=== PATIENT | female | born 1995 | race Caucasian/White ===

== ENCOUNTER 2018-06-10 02:20 | Outpatient (CLI) | payer OTHER ==
[2018-06-10 03:14] LABS: ADD UMIC YES; UR ASCORBIC ACID 40 mg/dL (NEGATIVE); UR BACTERIA FEW /HPF (NONE SEEN); UR BILIRUBIN (Dip) NEGATIVE (NEGATIVE); UR BLOOD (Dip) NEGATIVE (NEGATIVE); UR CLARITY CLEAR (CLEAR); UR COLOR YELLOW (YELLOW); UR GLUCOSE (Dip) NEGATIVE (NEGATIVE); UR KETONES (Dip) NEGATIVE (NEGATIVE); UR LEUKOCYTE ESTERASE (Dip) TRACE Leu/ul (NEGATIVE); UR MUCUS MODERATE /HPF (NONE SEEN); UR NITRITE (Dip) NEGATIVE (NEGATIVE); UR RBC 2 /HPF (0-5); UR SPECIFIC GRAVITY (Dip) 1.021 (1.003-1.030); UR SQUAMOUS EPITHELIAL CELL FEW /HPF (FEW); UR TOTAL PROTEIN (Dip) NEGATIVE (NEGATIVE); UR UROBILINOGEN (Dip) NEGATIVE (NEGATIVE); UR WBC 4 /HPF (0-5)
[2018-06-10 03:25] LABS: RUPTURE FETAL MEMBRANES NEGATIVE (NEGATIVE)
== END 2018-06-10 05:15 | disposition home or self-care (01) ==
LOC: OBT 02:20 → L-D 02:20 → OBT 05:15
DX: O62.9 Abnormality of forces of labor, unspecified (principal); Z3A.38 38 weeks gestation of pregnancy
CPT/HCPCS: 76818; 81001; 84112

== ENCOUNTER 2018-06-19 16:56 | Inpatient (IN) | payer OTHER ==
[2018-06-19] MEDS ORDERED: LACTATED RINGER'S 1,000 ML IV (19:50)
[2018-06-19] MEDS ORDERED: METHYLERGONOVINE 0.2 MG INJ IM (20:00)
[2018-06-19] MEDS ORDERED: MISOPROSTOL 200 MCG TAB PR (20:00)
[2018-06-19] MEDS ORDERED: BUTORPHANOL 2 MG INJ IV (20:00)
[2018-06-19] MEDS ORDERED: LIDOCAINE 1% (MPF) 30 ML INJ INJ (20:00)
[2018-06-19] MEDS ORDERED: CARBOPROST 250 MCG INJ IM (20:00)
[2018-06-19] MEDS ORDERED: OXYTOCIN 30 UNITS/LR 500 ML IV ×2 (20:00)
[2018-06-19] MEDS: MISOPROSTOL 50 MCG CAPSULE VAG (20:00)
[2018-06-19] MEDS: LACTATED RINGER'S 1,000 ML IV ×2 (20:47→22:59)
[2018-06-19 22:31] LABS: ADD MAN DIFF? NO
[2018-06-19 22:38] LABS: WHITE BLOOD COUNT 11.7 10^3/ul (4.8-10.8)
[2018-06-19 22:38] LABS: BASOPHILS % 0.3 % (0.0-2.0); EOSINOPHILS # 0.2 10^3/ul (0.0-0.5); EOSINOPHILS % 1.3 % (0.0-7.0); HEMATOCRIT 42.6 % (37.0-47.0); HEMOGLOBIN 14.7 g/dl (12.0-16.0); LYMPHOCYTES # 2.6 10^3/ul (0.8-2.9); LYMPHOCYTES % 22.2 % (18.0-55.0); MEAN CORPUSCULAR HEMOGLOBIN 32.7 pg (29.0-33.0); MEAN CORPUSCULAR HGB CONC 34.5 g/dl (32.0-37.0); MEAN CORPUSCULAR VOLUME 94.7 fl (72.0-104.0); MEAN PLATELET VOLUME 11.6 fl (7.4-10.4); MONOCYTE # 0.8 10^3/ul (0.3-0.9); MONOCYTES % 6.5 % (0.0-13.0); NEUTROPHIL # 8.1 10^3/ul (1.6-7.5); NEUTROPHILS % 69.2 % (30.0-74.0); PLATELET COUNT 150 10^3/UL (140-415); RED CELL DISTRIBUTION WIDTH 12.9 % (11.5-14.5)
[2018-06-19 22:56] LABS: INR 0.87; PROTIME 11.9 Sec (11.9-14.9); PT RATIO 0.9
[2018-06-19 22:57] LABS: PARTIAL THROMBOPLASTIN TIME 30.9 Sec (23.0-35.0)
[2018-06-19] MEDS ORDERED: ROPIVACAINE 0.2% 100 ML (23:10)
[2018-06-19] MEDS: ROPIVACAINE 0.2% 100 ML INJ EPI (23:30)
[2018-06-20 00:13] LABS: HEPATITIS B SURFACE ANTIGEN NEGATIVE (NEGATIVE)
[2018-06-20] MEDS: OXYTOCIN 30 UNITS/LR 500 ML IV ×3 (00:21→17:01)
[2018-06-20] MEDS: ONDANSETRON 4 MG INJ IV ×2 (01:46→10:53)
[2018-06-20] MEDS: LACTATED RINGER'S 1,000 ML IV ×2 (02:42→07:06)
[2018-06-20] MEDS: ROPIVACAINE 0.2% 100ML BAG EPI (05:42)
[2018-06-20] MEDS: LACTATED RINGER'S 1,000 ML IV* ×2 (12:10→20:10)
[2018-06-20] MEDS: IBUPROFEN 600 MG TAB PO ×2 (12:13→20:38)
[2018-06-20] MEDS ORDERED: DIBUCAINE 1% 30 GM OINT TOP (12:30)
[2018-06-20] MEDS ORDERED: CARBOPROST 250 MCG INJ IM (12:30)
[2018-06-20] MEDS ORDERED: IBUPROFEN 600 MG TAB PO (12:30)
[2018-06-20] MEDS ORDERED: LANOLIN HPA 1 PKT TOP (12:30)
[2018-06-20] MEDS ORDERED: MISOPROSTOL 200 MCG TAB PR (12:30)
[2018-06-20] MEDS ORDERED: SENNA/DOCUSATE NA (8.6MG/50MG) TAB PO (12:30)
[2018-06-20] MEDS ORDERED: OXYTOCIN 30 UNITS/LR 500 ML IV (12:30)
[2018-06-20] MEDS ORDERED: ONDANSETRON 4 MG INJ IV (12:30)
[2018-06-20] MEDS ORDERED: METHYLERGONOVINE 0.2 MG INJ IM (12:30)
[2018-06-20] MEDS ORDERED: WITCH HAZEL/GLYCERIN PAD PR (12:30)
[2018-06-20] MEDS ORDERED: MAGNESIUM HYDROXIDE 30ML CUP PO (12:30)
[2018-06-20] MEDS ORDERED: ACETAMINOPHEN 325 MG TAB PO ×2 (12:30)
[2018-06-20] MEDS: OXYCODONE/ACETAMINOPHEN (5/325) TAB PO (13:45)
[2018-06-20] MEDS: CEFAZOLIN 1 GM/50 ML (PMX) 50 ML IVPB ×2 (14:02→22:32)
[2018-06-20] MEDS: BENZOCAINE 20% 56 ML SPRAY TOP (14:22)
[2018-06-20 14:41] LABS: RAPID PLASMA REAGIN NONREACTIVE (NR)
[2018-06-20] MEDS: HYDROCODONE/APAP (5/325) TAB PO (20:38)
[2018-06-21] MEDS: IBUPROFEN 600 MG TAB PO ×2 (03:00→17:11)
[2018-06-21] MEDS: LACTATED RINGER'S 1,000 ML IV* ×2 (04:10→19:51)
[2018-06-21] MEDS: CEFAZOLIN 1 GM/50 ML (PMX) 50 ML IVPB (05:36)
[2018-06-21 08:25] LABS: ADD MAN DIFF? NO
[2018-06-21] MEDS: OXYCODONE/ACETAMINOPHEN (5/325) TAB PO (08:27)
[2018-06-21 08:33] LABS: BASOPHILS % 0.3 % (0.0-2.0); EOSINOPHILS # 0.1 10^3/ul (0.0-0.5); HEMATOCRIT 31.1 % (37.0-47.0); HEMOGLOBIN 10.4 g/dl (12.0-16.0); LYMPHOCYTES % 15.9 % (18.0-55.0); MEAN CORPUSCULAR HEMOGLOBIN 32.9 pg (29.0-33.0); MEAN CORPUSCULAR HGB CONC 33.4 g/dl (32.0-37.0); MEAN CORPUSCULAR VOLUME 98.4 fl (72.0-104.0); MEAN PLATELET VOLUME 11.7 fl (7.4-10.4); MONOCYTES % 8.4 % (0.0-13.0); NEUTROPHIL # 9.1 10^3/ul (1.6-7.5); NEUTROPHILS % 73.7 % (30.0-74.0); PLATELET COUNT 115 10^3/UL (140-415); RED BLOOD COUNT 3.16 10^6/ul (4.20-5.40); RED CELL DISTRIBUTION WIDTH 12.9 % (11.5-14.5)
[2018-06-21 08:33] LABS: WHITE BLOOD COUNT 12.3 10^3/ul (4.8-10.8)
[2018-06-22] MEDS: LACTATED RINGER'S 1,000 ML IV* (04:10)
[2018-06-22] MEDS: HYDROCODONE/APAP (5/325) TAB PO (06:36)
[2018-06-22] MEDS: IBUPROFEN 600 MG TAB PO (06:41)
== END 2018-06-22 15:50 | disposition home or self-care (01) | DRG 807 ==
LOC: OBT 16:56 → PP1 06-20 15:32 → L-D 16:58 → OBT 19:34 → L-D 19:34
PROVIDERS: Obstetrics & Gynecology
PROC: 10E0XZZ Delivery of Products of Conception, External Approach (ICD-10-PCS; principal; 2018-06-20)
PROC: 0W8NXZZ Division of Female Perineum, External Approach (ICD-10-PCS; 2018-06-20)
DX: O48.0 Post-term pregnancy (principal); Z37.0 Single live birth; Z3A.40 40 weeks gestation of pregnancy
CPT/HCPCS: 62319; 76815; 76818; 85025; 85610; 85730; 86592; 86850; 86900; 86901; 87340; 88307; 99464